=== PATIENT | female | born 1950 | race Caucasian/White ===

== ENCOUNTER → 2017-10-25 | Outpatient (CLI) | payer MEDICARE, OTHER | END | disposition home or self-care (01) | LOC: CFH 14:10 | PROVIDERS: ATTEND Internal Medicine Hematology & Oncology | DX: C50.912 Malignant neoplasm of unspecified site of left female breast (principal); Z85.3 Personal history of malignant neoplasm of breast; Z92.3 Personal history of irradiation; R92.2 Inconclusive mammogram | CPT/HCPCS: 76642; G0204 ==

== ENCOUNTER 2019-05-28 10:02 | Day surgery (SDC) | payer MEDICARE, OTHER ==
[~2019-05-28] VITALS: Ht 167.6 cm; Wt 50.3 kg
[2019-05-28 10:59] VITALS: BP 107/71
[2019-05-28] MEDS ORDERED: GABA600T7 PO (11:05)
[2019-05-28] MEDS ORDERED: OMEP-110 PO (11:05)
[2019-05-28] MEDS ORDERED: PROPOFOL 10 MG/ML, 50ML ONE (11:15)
== END 2019-05-28 13:08 | disposition home or self-care (01) ==
LOC: OUT 10:02
PROVIDERS: ATTEND Internal Medicine Gastroenterology
DX: A04.71 Enterocolitis due to Clostridium difficile, recurrent (principal); K21.9 Gastro-esophageal reflux disease without esophagitis; Z79.899 Other long term (current) drug therapy
CPT/HCPCS: 45380; 88305; J2704